=== PATIENT | male | born 2005 | race Caucasian/White ===

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

== ENCOUNTER 2025-05-04 15:14 | Outpatient (AMB) | payer OTHER, SELFPAY ==
--- NOTE | 2025-05-04 15:18 | A.OFFPC_ITS ---
Vital Signs 05/04/25 15:19 Height 5 ft 10 in Weight 110 lb BMI 15.8 BP 114/80 Blood Pressure Location Lt brachial Position Sitting Intake Visit Reasons: Annual physical Intake Note: Patient here for a physical exam Sole Conditioner Required: No Accompanied by: Self / Same As Patient Allergies No Known Allergies Allergy (Verified 05/04/25 15:26) Medication List - Last Reconciled 05/04/25 by Hailey Pete MD pantoprazole 40 mg PO DAILY 90 days Tobacco use date assessed: 12/23/24 Dental Screening Dental Screen Date: 12/23/24 HPI HPI Comments History of Present Illness Details The patient is a 19-year-old male presenting for a physical exam and evaluation of ongoing health concerns. The patient reports experiencing heartburn, which is managed with pantoprazole taken as needed. He notes improvement in symptoms with this medication, although he occasionally forgets to take it, resulting in usage approximately three times a week. The patient is aware of potential long-term side effects of pantoprazole, such as osteoporosis and low magnesium levels, and is advised against daily use. The patient has a history of depression, with a PHQ-9 score of 8, indicating mild depression. He does not currently see a mental health professional and manages his symptoms independently. He also experiences low-level anxiety, which he attributes to stress, and has not sought counseling despite being advised of its availability. The patient experienced chest pain previously, which was evaluated in the hospital. Blood work showed low white blood cell and platelet counts, but other parameters, including cholesterol and thyroid function, were normal. An EKG was performed, showing normal changes, and the chest pain was suspected to be related to anxiety or heartburn. The patient reports right knee discomfort characterized by clicking sounds, which has persisted for approximately eight years. The knee does not cause pain but feels different compared to the other knee. An x-ray is planned to further evaluate this issue. [facility] Surgical History No pertinent past surgical history Family History Mother Asthma GERD (gastroesophageal reflux disease) Father No problems noted. Social History Housing: Apartment Alcohol intake: current Alcohol intake frequency: holidays/special occasions only Alcohol type: beer Patient Tobacco Use Status: Never used Tobacco e-Cigarette/Vaping Use: Never Used Second Hand Smoke Exposure: No service: No Current occupational status: employed Current occupational exposures/hazards: No Cognitive needs: No Hearing needs: No Vision needs: No Questionnaire PHQ-9 Over the last 2 weeks, how often have you been bothered by any of the following problems? 1. Little interest or pleasure in doing things: nearly every day 2. Feeling down, depressed, or hopeless: nearly every day 3. Trouble falling or staying asleep, or sleeping too much: not at all 4. Feeling tired or having little energy: not at all 5. Poor appetite or overeating: several days 6. Feeling bad about yourself - or that you are a failure or have let yourself or your family down: several days 7. Trouble concentrating on things, such as reading the newspaper or watching television: not at all 8. Moving or speaking so slowly that other people could have noticed. Or the opposite - being so fidgety or restless that you have been moving around a lot more than usual: not at all 9. Thoughts that you would be better off or of hurting yourself in some way: not at all Total score: 8 Depression Screening Interpretation: Positive Depression Screening Follow-up: Existing condition and Follow-up Visit Requested Depression Screening Done: Yes 71903 - PHQ-9 Billing: Yes Source: Developed by Drs. Jose M Taylor, Oanh Sky, David Lyn and colleagues, with an educational layla from [employer]. Thrive Questionnaire Date Thrive assessed: 12/21/24 I am a: Patient What is your living situation today?: I have a steady place to live Within the past 12 months, did the food you bought not last and you didn't have the money to get more?: Never true Within the past 12 months, did you worry whether your food would run out before you got money to buy more?: Never true Do you have trouble paying for medicines?: No Do you have trouble getting transportation to medical appointments?: No Do you have trouble paying your heating and electricity bill?: I choose not to answer this question Do you have trouble taking care of your child, family member or friend?: I choose not to answer this question Do you have trouble with day-to-day activities such as bathing, preparing meals, shopping, managing finances, etc.?: No Are you currently unemployed and looking for a job?: No Are you interested in more education?: I choose not to answer this question Please select the resources that you would like help with: None Currently or been in a relationship where the following occur: No concerns reported THRIVE Score: 0 MAUREEN-7 AMB Questionnaire MAUREEN-7 Date MAUREEN - 7 assessed: 12/23/24 Source: Developed by Drs. Jose M Taylor, Oanh Sky, David Lyn and colleagues, with an educational layla from [employer]. Review of Systems Const All systems reviewed & are unremarkable except as noted in HPI and below Card Denies chest pain at rest, Denies chest pain with activity, Denies edema, Denies irregular heart rhythm, Denies claudication, Denies dyspnea, Denies dyspnea on exertion, Denies orthopnea, Denies paroxysmal nocturnal dyspnea and Denies slow heart rate Resp Denies cough, Denies dyspnea and Denies dyspnea on exertion GI Denies abdominal pain, Denies change in bowel habits, Denies excessive flatus, Denies nausea and Denies vomiting Denies urinary hesitancy, Denies urinary incontinence and Denies urinary urgency Musc Denies atrophy, Denies deformity and Denies limited range of motion Physical exam (Primary Care) Vital Signs: Last Vital Signs BP 114/80 05/04/25 15:19 BMI result Body Mass Index 15.8 Tobacco/Smoking Status: Tobacco use Status Tobacco use date assessed 12/23/24 05/04/25 15:21 Patient Tobacco Use Status Never used Tobacco 05/04/25 15:21 e-Cigarette/Vaping Use Never Used 05/04/25 15:21 Depression Screening Interpretation: Positive Depression Screening Follow-up: Existing condition and Follow-up Visit Requested Thrive Assessment: Date of Thrive Assessment Date Thrive assessed 12/21/24 05/04/25 15:21 Currently or been in a relationship where the following occur: No concerns reported HENMT Head: Yes normal to inspection, Yes normocephalic and Yes atraumatic Ears: external ears normal Eyes General: appearance normal, both eyes and all related structures Eyelids: Yes eyelids normal Conjunctivae: conjunctivae normal Neck Neck: Yes normal visual inspection and Yes supple Resp Effort & Inspection: normal respiratory effort Auscultation: clear to auscultation bilaterally Cardio Jugular venous distension: no JVD Rate: regular rate Rhythm: regular rhythm Heart sounds: S1 normal heart sound present and S2 normal heart sound present GI Inspection: Yes normal to inspection Palpation (GI): Soft to palpation and nontender Auscultation: normal bowel sounds Skin General skin exam: no rashes or lesions noted Neuro General: no focal motor deficits Extrem General: Yes full ROM Psych Appearance: grossly normal Coding Level of Care Code Est Pt Level 3 (35786) Est Pt Prev Care 18-39y(02607) Diagnoses Physical exam Z00.00 Mild recurrent major depression F33.0 Thrombocytopenia D69.[address] M25.361 Additional Codes PHQ-9 - 72957 - PHQ-9 Billing: Yes ([id number]) Time Spent (min) 33 Assessment & Plan Assessment & Plan (1) Physical exam: Code(s): Z00.00 - Encounter for general adult medical examination without abnormal findings Category: Medical (2) Mild recurrent major depression: Code(s): F33.0 - Major depressive disorder, recurrent, mild Category: Medical (3) Thrombocytopenia: Code(s): D69.6 - Thrombocytopenia, unspecified Category: Medical (4) Right knee gives way: Code(s): M25.361 - Other instability, right knee Category: Medical Plan The patient will continue to manage heartburn with pantoprazole as needed, ensuring not to exceed three times a week to avoid potential side effects such as osteoporosis and low magnesium levels. For the depression and anxiety, the patient is encouraged to seek counseling if symptoms become unmanageable, although he currently manages them independently. The patient will undergo repeat blood work to monitor white blood cell and platelet counts, as previous results indicated low levels. An x-ray of the right knee will be performed to investigate the persistent clicking sound. Patient was informed and verbally consented to the use of an ambient scribe for clinic note documentation during this visit. Orders: Orders Complete Blood Count Auto Diff Today D69.6 - Thrombocytopenia, unspecified XR knee RT 2V Today M25.361 - Other instability, right knee
[2025-05-04 15:19] VITALS: BP 114/80; BMI 15.8
--- OUTSIDE RECORDS SUMMARY | 2025-05-04 15:57 | XMS_ITS | Clinical Summary ---
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 Name Role Phone Unavailable Primary Care Provider [...] Male 3-dos e series) 2020 Meningococcal B Vaccine (1 o f 2 - Standard) 2021 COVID-19 Vaccine (1 - 2023-2 5 season) 2024 DTaP,Tdap,and Td Vaccines (1 - Tdap) 2024 Hepatitis B Vaccines (1 of 3 - 19+ 3-dose series) 2024 Annual Well Child Visit (3-2 1 years old) 08/31/2024 HIV Screening 08/31/2024 Hepatitis C Screening 08/31/2024 Social Influencers of Health Screening 08/31/2024 Depression Screening 10/06/2024 Influenza Vaccine (#1) 2025 HIB Vaccines Aged Out No longer eligi [...] 5 Years) and At-Risk Patients (6 to 49 Years) Aged Out No longer eligible b ased on patient's age to complete this topic RSV Immunization Patients Un ezra 20 months Aged Out No longer eligible b ased on patient's age to complete this topic
== END 2025-05-04 15:40 | disposition home or self-care (01) ==
LOC: HO.HMCH 15:15
PROVIDERS: Visit Provider Internal Medicine
DX: Z00.00 Encounter for general adult medical examination without abnormal findings (principal); F33.0 Major depressive disorder, recurrent, mild; D69.6 Thrombocytopenia, unspecified; M25.361 Other instability, right knee

== ENCOUNTER 2025-05-04 15:14 | Outpatient (REF) | payer OTHER, SELFPAY ==
--- NOTE | ~2025-05-04 | XR_ITS ---
EXAMINATION: XR KNEE, RIGHT CLINICAL INFORMATION: M25.361 - Other instability, right knee COMPARISON: None available. TECHNIQUE: AP and lateral views of the right knee. FINDINGS: There is no joint space narrowing. There is no joint effusion. There are no osteophytes. There is normal bone mineral density. XR/XR knee RT 2V IMPRESSION: Unremarkable right knee. Electronically signed by: Zach Grimm MD 05/04/2025 04:31 PM EDT
[2025-05-04 15:53] LABS: MANUAL DIFF FLAG NO
[2025-05-04 17:02] LABS: Hematocrit 43.9 % (42.0-52.0); Hemoglobin 14.7 g/dl (14.0-18.0); Imm Gran Abs Auto 0.01 X10*3/uL (0.00-0.03); Imm Gran Pct Auto 0.2 % (0.0-0.4); Lymphocytes Absolute Auto 1.4 X10*3/uL (1.2-4.9); Mean Corpuscular HGB Conc 33.5 g/dl (31.0-36.0); Mean Corpuscular Hemoglobin 29.5 pg (27.0-33.0); Mean Corpuscular Volume 88.0 fL (80.0-98.0); NRBC Abs Auto 0.000 X10*3/uL (0.0-0.012); NRBC Pct Auto 0.0 /100WBC (0.0-0.2); Platelet Count 157 X10*3/uL (160-400); Red Blood Count 4.99 X10*6/uL (4.60-5.80); White Blood Count 6.4 X10*3/uL (4.8-10.8)
== END 2025-05-04 15:15 | disposition home or self-care (01) ==
LOC: HO.LAB 15:14
PROVIDERS: PCP Internal Medicine; Visit Provider Internal Medicine
DX: Z00.01 Encounter for general adult medical examination with abnormal findings (principal); F33.0 Major depressive disorder, recurrent, mild; D69.6 Thrombocytopenia, unspecified; M25.361 Other instability, right knee; M25.561 Pain in right knee
CPT/HCPCS: 36415; 73560; 85025; 96127; 99212; 99395

== ENCOUNTER → 2025-05-04 15:59 | Outpatient (BNV) | payer OTHER, SELFPAY | PROVIDERS: PCP Internal Medicine; Visit Provider Radiology Diagnostic Radiology | DX: M25.361 Other instability, right knee (principal) | CPT/HCPCS: 73560 ==

== ENCOUNTER 2025-05-31 10:51 | Outpatient (AMB) | payer OTHER, SELFPAY ==
[2025-05-31 11:00] VITALS: BP 117/66; PULSE 65; BMI 17.4
--- NOTE | 2025-05-31 11:00 | A.OFFVIS_ITS ---
Vital Signs 05/31/25 11:00 Height 5 ft 10 in Weight 121 lb 4.068 oz BMI 17.4 BP 117/66 Blood Pressure Location Lt brachial Position Sitting Pulse 65 Intake Visit Reasons: Gastroesophageal reflux disease (GERD) Intake Note: Corona presents in the office as a new patient for GERD. CC: States that he eats a lot and this is the most he has ever weighed. States that he does not have irregular BMs but he has bad GERD. Belching a lot an states that when he eats a lot he will get a feeling like the food is going to come up. He states he does not have issues with nausea or vomiting just more so the reflux. Business Insurance Agent Required: No Allergies No Known Allergies Allergy (Verified 05/31/25 11:02) HPI HPI Gastroesophageal reflux disease (GERD): Details: 19-year-old male here for initial evaluation of GERD. He is referred by Hailey Deleon. PMX Depression with anxiety GERD * SURGICAL HISTORY * ALLERGIES: NKDA * [facility] LABS: Laboratory Tests 12/28/24 05/04/25 09:03 15:51 WBC 6.4 Hgb 14.7 Hct 43.9 Plt Count 157 L Estimated GFR > 60 Total Bilirubin 0.6 AST 26 ALT 24 Alkaline Phosphatase 86 TSH 0.54 TODAY'S VISIT [facility] Surgical History No pertinent past surgical history Family History Mother Asthma GERD (gastroesophageal reflux disease) Father No problems noted. Social History Housing: Apartment Alcohol intake: current Alcohol intake frequency: holidays/special occasions only Alcohol type: beer Patient Tobacco Use Status: Never used Tobacco e-Cigarette/Vaping Use: Never Used Second Hand Smoke Exposure: No service: No Current occupational status: employed Current occupational exposures/hazards: No Cognitive needs: No Hearing needs: No Vision needs: No Review of Systems Const Denies fatigue, Denies fever(s), Denies night sweats, Denies poor appetite, Reports weight gain (About 5 lb) and Denies weight loss ENT Reports Normal hearing present, Denies dental pain, Denies dysphagia, Denies hearing loss, Denies mouth pain, Denies odynophagia, Denies throat swelling, Denies tongue swelling and Reports other (Dentition adequate) Card Reports no additional complaints Resp Reports no additional complaints GI Details: Denies abdominal pain, Denies melena, Denies bloating, Denies hematochezia, Denies constipation, Denies GI cramping, Denies dysphagia, Denies excessive flatus, Denies early satiety, Reports dyspepsia, Reports heartburn, Denies diarrhea, Denies nausea, Denies odynophagia, Denies vomiting and Denies hematemesis Reports urinary frequency Skin/Breast Denies pruritus, Denies lesions, Denies rash and Denies jaundice Neuro Reports Normal hearing present and Denies Abnormal speech present Endo Denies fatigue Aller/Immun Denies throat swelling and Denies tongue swelling Physical Exam Vital Signs: Last Vital Signs Pulse 65 05/31/25 11:00 BP 117/66 05/31/25 11:00 BMI result Body Mass Index 17.4 Const General: cooperative, no acute distress, well developed and well groomed Nutritional Appearance: well nourished and thin Orientation/consciousness: oriented to person, oriented to place and oriented to time Limitations: No language barrier HEENT Head: Yes normocephalic and Yes atraumatic Eyes General: appearance normal, both eyes and all related structures Pupils: Equal, round and reactive pupils present Neck Neck: Yes normal visual inspection and Yes no lymphadenopathy Thyroid: Thyroid normal Resp Effort & Inspection: normal respiratory effort and able to speak in complete sentences Auscultation: clear to auscultation bilaterally Cardio Rate: regular rate Rhythm: regular rhythm Heart sounds: Normal, physiologic split S2 sound present Peripheral pulses: radial pulses present and posterior tibial pulses present GI Inspection: No distended and No Abdominal panniculus present Palpation (GI): Soft to palpation, nontender, no guarding, not rigid and No hepatosplenomegaly present Percussion: Yes normal to percussion Auscultation: normal bowel sounds Rectal Exam - Male: Yes deferred Skin General skin exam: no rashes or lesions noted, turgor normal, skin not dry, no jaundice, No spider nevi and no striae Rashes: no rashes Nails: normal Neuro General: oriented to person, oriented to place and oriented to time Cranial nerves: Yes Equal, round and reactive pupils present and Yes Normal hearing present Speech: No Abnormal speech present Extrem General: Yes normal to inspection, No clubbing, No cyanosis and No edema Psych Appearance: grossly normal and well kempt Mental Status: mental status grossly normal Speech and movement: Normal speech and movement present Affect: normal affect Attitude: cooperative Thought process: Normal thought process present and not confabulating Thought content: Normal thought content present Insight: Fair insight present (Psych) Judgement: Fair judgement present (Psych) Assessment & Plan Assessment & Plan (1) Chronic GERD: Code(s): K21.9 - Gastro-esophageal reflux disease without esophagitis Category: Medical (2) Polyuria: Code(s): R35.89 - Other polyuria Category: Medical (3) Hyperglycemia: Code(s): R73.9 - Hyperglycemia, unspecified Category: Medical Plan - The patient is a 19-year-old male presenting with heartburn. - Reports onset of heartburn symptoms 8 to 10 months ago, with a progression to more frequent and bothersome episodes. - Experiences significant burping after meals, a feeling of acid reflux, and infrequent regurgitation when burping incorrectly. He has not received any significant literature on GERD diet and lifestyle changes. - Denies dysphagia, but describes food sometimes feeling like it does not go luzma n all the way. - Symptom relief was noted with pantoprazole, although used sporadically; I suggested this is not the most effective medication to use p.r.n. due to pharmacological onset time. - An earlier history of constipation is described, which was managed by increased dietary fiber and fluid intake. - The patient acknowledges increased urinary frequency during extended work shifts, correlating with high fluid intake. 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 - Initially experienced erratic meal patterns due to work, leading to missed me als. - Engages in regular physical activity through work, resulting in improved strength. - Diet includes home-cooked meals with increased water consumption and reduced ingestion of processed foods. - Mother: Esophageal issues characterized by heartburn. - Paternal grandmother: Diabetes mellitus. We will transition him to famotidine instead of pantoprazole so that he can get more effective PRN relief since this has a faster onset of action. We will also get a barium swallow to evaluate esophageal motility and if there is any severe herniation of the esophagus, and an ultrasound to see if there are any gallbladder issues along with an H pylori stool sample. We have also discussed the potential EGD depending on the outcome of these procedures, but I think we should order it now since there is quite a long lead time to get this procedure done. He is naive to anesthesia and sedation. He denies any cardiac or respiratory problems. There are no infectious disease problems. He is not aware of any family history of esophageal, stomach or colon cancer. Return office visit in 8 weeks and will go over whatever tests we have available at that time Orders: Orders UA CC w/rflx Micro + Cult Today R35.89 - Other polyuria, R73.9 - Hyperglycemia, unspecified FL barium swallow Today K21.9 - Gastro-esophageal reflux disease without esophagitis EGD - GI Use Only Today K21.9 - Gastro-esophageal reflux disease without esoph agitis US abdomen complete Today K21.9 - Gastro-esophageal reflux disease without esophagitis H pylori Ag Stool Today K21.9 - Gastro-esophageal reflux disease without esophagitis Hemoglobin A1c Today R35.89 - Other polyuria, R73.9 - Hyperglycemia, unspecified Medications: New famotidine (Pepcid) 40 mg PO DAILY PRN 30 tabs 6RF heartburn K21.9 - Gastro- esophageal reflux disease without esophagitis On Hold pantoprazole Hold Comment: Doctor's Order 40 mg PO DAILY 90 days 90 tabs 1RF K21.9 - Gastro-esophageal reflux disease without esophagitis Coding Level of Care Code New Pt Level 3 (63102) Diagnoses Chronic GERD K21.9 Polyuria R35.89 Hyperglycemia R73.9
--- OUTSIDE RECORDS SUMMARY | 2025-05-31 11:43 | XMS_ITS | Clinical Summary ---
Author Organization [facility] Address [address] [place] [address] Care Team Providers Care Senior Professional Services Consultant Name Role Phone Unavailable Primary Care Provider [...]
== END 2025-05-31 11:48 | disposition home or self-care (01) ==
LOC: HO.HGI 10:52
PROVIDERS: PCP Internal Medicine; Visit Provider Nurse Practitioner
DX: K21.9 Gastro-esophageal reflux disease without esophagitis (principal); R35.89 Other polyuria; R73.9 Hyperglycemia, unspecified
CPT/HCPCS: 99203

== ENCOUNTER → 2025-05-31 10:51 | Outpatient (BNVA) | payer OTHER, SELFPAY | PROVIDERS: PCP Internal Medicine; Visit Provider Nurse Practitioner | DX: K21.9 Gastro-esophageal reflux disease without esophagitis (principal); R35.89 Other polyuria; R73.9 Hyperglycemia, unspecified | CPT/HCPCS: 99202 ==

== ENCOUNTER 2025-06-13 14:29 | Outpatient (AMB) | payer OTHER, SELFPAY ==
--- NOTE | 2025-06-13 14:32 | A.OFFVIS_ITS ---
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 Instructions: Doctor's Order HPI Comments Details: Corona was referred here as few months ago he had EKGs which showed sinus bradycardia and early repolarization syndrome as much as he can understand. He has never had any symptoms of lightheadedness or syncope. 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 He denies any symptoms with that. He has never had any exertional chest pain or shortness of breath. He comes in today and his EKGs shows normal sinus rhythm with rightward axis and right atrial enlargement. This could be due to his body habitus. Patient denies any prior as a child murmur. No childhood heart history. No family history of premature coronary artery disease or sudden cardiac that. [facility] Surgical History No pertinent past surgical history Family History Mother Asthma GERD (gastroesophageal reflux disease) Father No problems noted. Social History Housing: Apartment Alcohol intake: current Alcohol intake frequency: holidays/special occasions only Alcohol type: beer Patient Tobacco Use Status: Never used Tobacco e-Cigarette/Vaping Use: Never Used Second Hand Smoke Exposure: No service: No Current occupational status: employed Current occupational exposures/hazards: No Cognitive needs: No Hearing needs: No Vision needs: No Review of Systems Const Denies chills, Denies daytime sleepiness, Denies fatigue, Denies fever(s), Denies frequent falls, Denies poor appetite, Denies snoring, Denies stops breathing during sleep, Denies weakness, Denies weight gain and Denies weight loss Eyes Denies loss of vision ENT Denies dizziness and Denies hearing loss Card Denies chest pain, Denies claudication, Denies leg edema, Denies lightheadedness, Denies palpitations, Denies dyspnea, Denies dyspnea on exertion and Denies orthopnea Resp Denies cough, Denies excessive phlegm production, Denies dyspnea, Denies dyspnea on exertion, Denies snoring and Denies wheezing GI Denies abdominal pain, Denies hematochezia, Denies change in bowel habits, Denies nausea and Denies vomiting Denies dysuria and Denies urinary frequency Musc Denies arthralgias, Denies muscle weakness and Denies numbness Skin/Breast Denies nail changes and Denies rash Neuro Denies Abnormal speech present, Denies dizziness, Denies frequent falls, Denies loss of vision, Denies memory loss, Denies numbness and Denies weakness Psych Denies depression and Denies memory loss Endo Denies fatigue and Denies palpitations Ramiro/Lymph Reports easy bruising and Reports other (anemia) Aller/Immun Denies wheezing Physical Exam Vital Signs: Last Vital Signs BP 120/72 06/13/25 14:33 BMI result Body Mass Index 17.4 Const General: cooperative, comfortable, no acute distress, alert and awake Nutritional Appearance: thin and underweight Orientation/consciousness: patient oriented x3 Limitations: no limitations HEENT Head: Yes normocephalic and Yes atraumatic Neck Neck: Yes trachea midline, Yes supple and Yes no JVD Resp Effort & Inspection: normal respiratory effort Auscultation: clear to auscultation bilaterally Cardio Jugular venous distension: no JVD Rate: regular rate Rhythm: regular rhythm Heart sounds: S1 normal heart sound present, S2 normal heart sound present, no click, no gallops, no murmurs and no rubs GI Auscultation: normal bowel sounds Skin General skin exam: no rashes or lesions noted Neuro General: patient oriented x3 and no focal motor deficits Speech: No Abnormal speech present Extrem General: Yes no clubbing, cyanosis or edema Psych Appearance: grossly normal Office Procedures EKG Details: EKG shows normal sinus rhythm with right atrial enlargement with rightward axis [id number], Complete Assessment & Plan Assessment & Plan (1) Sinus bradycardia: Code(s): R00.1 - Bradycardia, unspecified Category: Medical Plan: Sinus bradycardia which is considered normal at a young age with no symptoms. This most likely is physiologic. At today's heart rate within normal limits. No intervention required although today's EKGs suggestive of rightward axis right atrial enlargement. Will suggest an echocardiogram to assess for any structural abnormalities such as intracardiac shunting. Most likely EKGs related to his body habitus. Encouraged to maintain activity level as tolerated and participate in more weight gain. He showed understanding. Will follow up in the clinic if need be. Thank you for allowing me to partake in his care Coding Level of Care Code New Pt Level 3 (89530) Diagnoses Sinus bradycardia R00.1 CPT Codes EKG - CPT: 64281-[id number], Complete ([id number])
[2025-06-13 14:33] VITALS: BP 120/72; BMI 17.4
--- OUTSIDE RECORDS SUMMARY | 2025-06-13 16:50 | XMS_ITS | Clinical Summary ---
Author Organization [facility] Address [address] [place] [address] Care Team Providers Care Air Table Operator Name Role Phone Unavailable Primary Care Provider [...] (1 o f 2 - Standard) 2021 DTaP,Tdap,and Td Vaccines (1 - Tdap) 2024 Hepatitis B Vaccines (1 of 3 - 19+ 3-dose series) 2024 Annual Well Child Visit (3-2 1 years old) 08/31/2024 HIV Screening 08/31/2024 Hepatitis C Screening 08/31/2024 Social Influencers of Health Screening 08/31/2024 Depression Screening 10/06/2024 COVID-19 Vaccine (1 - 2023-2 5 season) 2025 Influenza Vaccine (#1) 2025 HIB Vaccines Aged [...]
== END 2025-06-13 15:24 | disposition home or self-care (01) ==
LOC: HO.HCS 14:29
PROVIDERS: PCP Internal Medicine; Visit Provider Internal Medicine Cardiovascular Disease
DX: R00.1 Bradycardia, unspecified (principal)
CPT/HCPCS: 93010; 99213

== ENCOUNTER → 2025-06-13 14:29 | Outpatient (BNVA) | payer OTHER, SELFPAY | PROVIDERS: PCP Internal Medicine; Visit Provider Internal Medicine Cardiovascular Disease | DX: R00.1 Bradycardia, unspecified (principal) | CPT/HCPCS: 93005; 99212 ==

== ENCOUNTER → 2025-07-08 13:07 | Outpatient (REF) | payer OTHER, SELFPAY ==
--- NOTE | 2025-07-08 13:09 | CA_ITS ---
Transthoracic Echocardiogram Patient (Last, First, Middle): Corona Hughes, Gender: Male Date of : 2005 Age: 19 Procedure Date: 07/08/2025 Procedure Type: Transthoracic Echocardiogram Location: OP Height: 177.8 cm Weight: 52.62 kg BSA: 1.66 m2 Heart Rate: bpm BP: 122 / 70 mmHg Launch Leader: TO Referring MD: Landen Vasquez MD Symptoms: R00.1 - Bradycardia, unspecified Study Quality: Adequate ECG Rhythm: Sinus Conclusions: - The left ventricular systolic function is normal. The calculated ejection fraction is 62% by biplane method. - No obvious valvular pathology seen on this study. Findings Left Ventricle Normal left ventricular cavity size. There is normal left ventricular wall thickness. The left ventricular systolic function is normal. The calculated ejection fraction is 62% by biplane method. There is no evidence of regional wall motion abnormalities. Diastolic function is normal for age. Right Ventricle Normal right ventricular cavity size and systolic function. Atria Both atria are normal in size. Aortic Valve There is a normal trileaflet aortic valve. There is no aortic valve stenosis. There is no aortic valve regurgitation. Mitral Valve The mitral valve appears normal. There is trace mitral valve regurgitation. There is no mitral valve stenosis. Pulmonic Valve The pulmonic valve is likely normal. Tricuspid Valve There is trace tricuspid valve regurgitation. There is no evidence of pulmonary hypertension. Great Vessels The aorta was not well visualized. The sinuses of valsalva is normal in size. Venous The inferior vena cava is normal in size and collapses greater than 50% with inspiration. Pericardium/Pleural There is no evidence of pericardial effusion. Prior Study Comparison No prior study available for comparison. Recommendations, Care & Conclusions No obvious valvular pathology seen on this study. Measurements 2D Linear Measurements IVSd: 0.78 0.6-0.9/0.6-1.0 cm LVIDd: 4.48 3.9-5.3/4.2-5.9 cm LVIDd Index: 2.70 2.4-3.2/2.2-3.1 cm/m2 LVIDs: 3.05 2.0-3.6 cm LVPWd: 0.80 0.7-1.1 cm LA Diam: 2.90 2.7-3.8/3.0-4.0 cm LAIDs Index: 1.75 1.5-2.3 cm/m2 LV Mass: 137.36 67-162/88-224 g LV Mass Index: 82.75 43-95/49-115 g/m2 LVOT Diam: 2.40 3.0+(-)1.3 cm 2D Systolic Function EF 4C: 61.80 >55% EF 2C: 61.90 >55% EF BiP: 61.70 >55% Mitral Valve MV Pk E: 0.71 MV PK A: 0.56 MV Decel Time: 146.00 E/A: 1.30 E'Lateral: 13.50 E'Medial: 10.60 E/E' Med: 6.70 E/E' Lat: 5.30 PHT: 43.00 MVA PHT: 5.12 Decel [place]: 4.87 Aortic Valve AoV Pk Desmond: 1.20 AoV Mn Desmond: 0.77 AoV VTI: 0.22 AoV Pk Grad: 6.00 Aov Mn Grad: 3.00 STERLING Cont.VTI: 4.20 LVOT LVOT Pk Desmond: 1.14 LVOT Mn Desmond: 0.75 LVOT VTI: 0.20 LVOT Pk Grad: 5.00 LVOT Mn Grad: 3.00 LVOT Diam: 2.40 LVOT Area: 4.52 Diastolic Function MV Pk E: 0.71 MV Pk A: 0.56 E/A: 1.30 E'Medial: 10.60 E/E' Med: 6.70 E' Laterial: 13.50 E/E' Lat: 5.30 Right Ventricle TAPSE (mm): 25.00 TVS' Desmond: 11.70 Tricuspid Valve TR Pk Desmond: 2.28 TR Pk Grad: 21.00 RA Press: 3.00 RVSP: 24.00 Great Vessels Aorta Sinus of Valsalva: 2.91 2.0-3.5 cm Updated in Other Vendor System with Status of Final Joni Nguyen MD electronically signed on 07/09/2025 4:45:08 PM with status of Final
--- OUTSIDE RECORDS SUMMARY | 2025-07-08 13:30 | XMS_ITS | Clinical Summary ---
Author Organization [facility] Address [address] [place] [address] Care Team Providers Care Manager Of Organizational Development Name Role Phone Unavailable Primary Care Provider [...] 5 season) 2025 Influenza Vaccine (#1) 2025 RSV Immunization Adult Patie nts (1 - 1-dose 75+ series) 2080 HIB Vaccines Aged Out No longer eligi [...]
== END ==
LOC: HO.CARD 13:07
PROVIDERS: PCP Internal Medicine; Visit Provider Internal Medicine Cardiovascular Disease
DX: R00.1 Bradycardia, unspecified (principal)
CPT/HCPCS: 93306

== ENCOUNTER → 2025-07-08 13:09 | Outpatient (BNV) | payer OTHER, SELFPAY | PROVIDERS: PCP Internal Medicine; Visit Provider Internal Medicine | DX: R01.1 Cardiac murmur, unspecified (principal) | CPT/HCPCS: 93306 ==

== ENCOUNTER 2025-07-29 08:25 | Outpatient (REF) | payer OTHER, SELFPAY ==
--- NOTE | ~2025-07-29 | US_ITS ---
EXAMINATION: US ABDOMEN COMPLETE CLINICAL INFORMATION: Gas esophageal reflux without esophagitis.. COMPARISON: None available. TECHNIQUE: Real-time ultrasound of the abdomen using grayscale technique with a curvilinear transducer. FINDINGS: PANCREAS: No peripancreatic fluid collections. No main pancreatic ductal dilatation. ABDOMINAL AORTA: The proximal, mid, and distal segments are normal in caliber. INFERIOR VENA CAVA: Visualized portions are normal. LIVER: 15 cm. Normal echotexture. No nodular surface. No solid or cystic lesion. No intrahepatic biliary ductal dilatation. GALLBLADDER: Fluid-filled nondistended. No pericholecystic fluid collection or gallbladder wall thickening. COMMON BILE DUCT: 3 mm.. RIGHT KIDNEY: 11 cm. Normal echotexture. Normal renal cortical thickness. No hydronephrosis. No solid or cystic lesion. LEFT KIDNEY: 10 cm. Normal echotexture. Normal renal cortical thickness. No hydronephrosis. No solid or cystic lesion. Questionable punctate hyperechoic structures at the corticomedullary junction.. SPLEEN: 10 cm. No solid or cystic lesion. FREE FLUID: None. US/US abdomen complete IMPRESSION: No cholelithiasis or choledocholithiasis. Liver and spleen are normal. No hydronephrosis. Questionable nonobstructing nephrolithiasis versus artifact, left kidney. No ascites. Electronically signed by: Chi Reaves MD 07/29/2025 09:51 AM EDT
--- OUTSIDE RECORDS SUMMARY | 2025-07-29 08:49 | XMS_ITS | Clinical Summary ---
Author Organization [facility] Address [address] [place] [address] Care Team Providers Care Senior Network Engineer Name Role Phone Unavailable Primary Care Provider [...]
== END 2025-07-29 08:26 | disposition home or self-care (01) ==
LOC: HO.US 08:25
PROVIDERS: PCP Internal Medicine; Visit Provider Nurse Practitioner
DX: K21.9 Gastro-esophageal reflux disease without esophagitis (principal)
CPT/HCPCS: 76700

== ENCOUNTER → 2025-07-29 08:30 | Outpatient (BNV) | payer OTHER, SELFPAY | PROVIDERS: PCP Internal Medicine; Visit Provider Radiology Diagnostic Radiology | DX: K21.9 Gastro-esophageal reflux disease without esophagitis (principal); N20.0 Calculus of kidney | CPT/HCPCS: 76700 ==

== ENCOUNTER 2025-08-02 08:07 | Outpatient (REF) | payer OTHER, SELFPAY ==
[2025-08-02 08:24] LABS: MANUAL DIFF FLAG NO
--- OUTSIDE RECORDS SUMMARY | 2025-08-02 08:25 | XMS_ITS | Clinical Summary ---
Author Organization [facility] Address [address] [place] [address] Care Team Providers Care Youtuber Name Role Phone Unavailable Primary Care Provider [...] complete this topic RSV Immunization Patients Un erza 20 months Aged Out No longer eligible b ased on patient's age to complete this topic
[2025-08-02 08:30] LABS: Hematocrit 47.0 % (42.0-52.0); Hemoglobin 15.6 g/dl (14.0-18.0); Imm Gran Abs Auto 0.01 X10*3/uL (0.00-0.03); Imm Gran Pct Auto 0.2 % (0.0-0.4); Lymphocytes Absolute Auto 1.2 X10*3/uL (1.2-4.9); Mean Corpuscular HGB Conc 33.2 g/dl (31.0-36.0); Mean Corpuscular Hemoglobin 29.7 pg (27.0-33.0); Mean Corpuscular Volume 89.5 fL (80.0-98.0); NRBC Abs Auto 0.000 X10*3/uL (0.0-0.012); NRBC Pct Auto 0.0 /100WBC (0.0-0.2); Platelet Count 142 X10*3/uL (160-400); Red Blood Count 5.25 X10*6/uL (4.60-5.80); White Blood Count 4.6 X10*3/uL (4.8-10.8)
[2025-08-02 08:39] LABS: Hemoglobin A1C 129.0720 umol/L
[2025-08-02 08:52] LABS: Appearance Urine Clear; Glucose Urine UA Negative (Negative); PH 7.5 (5.0-9.0); Specific Gravity - Urine 1.020 (1.005-1.025)
== END 2025-08-02 08:08 | disposition home or self-care (01) ==
LOC: HO.LAB 08:07
PROVIDERS: Absent Provider Internal Medicine; PCP Internal Medicine; Visit Provider Nurse Practitioner
DX: K21.9 Gastro-esophageal reflux disease without esophagitis (principal); D72.819 Decreased white blood cell count, unspecified; R35.89 Other polyuria; R73.9 Hyperglycemia, unspecified
CPT/HCPCS: 36415; 81003; 83036; 85025; 87338; 99212

== ENCOUNTER 2025-08-02 10:04 | Outpatient (AMB) | payer OTHER, SELFPAY ==
--- NOTE | 2025-08-02 10:26 | MHC.OFFVISWM ---
Intake Visit Reasons: 8 week FUV. Allergies No Known Allergies Allergy (Verified 05/31/25 11:02) HPI HPI 8 week FUV.: Details: Assessment & Plan (1) Chronic GERD: Code(s): K21.9 - Gastro-esophageal reflux disease without esophagitis Category: Medical (2) Polyuria: Code(s): R35.89 - Other polyuria Category: Medical (3) Hyperglycemia: Code(s): R73.9 - Hyperglycemia, unspecified Category: Medical Plan - The patient is a 19-year-old male presenting with heartburn. - Reports onset of heartburn symptoms 8 to 10 months ago, with a progression to more frequent and bothersome episodes. - Experiences significant burping after meals, a feeling of acid reflux, and infrequent regurgitation when burping incorrectly. He has not received any significant literature on GERD diet and lifestyle changes. - Denies dysphagia, but describes food sometimes feeling like it does not go down all the way. - Symptom relief was noted with pantoprazole, although used sporadically; I suggested this is not the most effective medication to use p.r.n. due to pharmacological onset time. - An earlier history of constipation is described, which was managed by increased dietary fiber and fluid intake. - The patient acknowledges increased urinary frequency during extended work shifts, correlating with high fluid intake. 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 - Initially experienced erratic meal patterns due to work, leading to missed meals. - Engages in regular physical activity through work, resulting in improved strength. - Diet includes home-cooked meals with increased water consumption and reduced ingestion of processed foods. - Mother: Esophageal issues characterized by heartburn. - Paternal grandmother: Diabetes mellitus. We will transition him to famotidine instead of pantoprazole so that he can get more effective PRN relief since this has a faster onset of action. We will also get a barium swallow to evaluate esophageal motility and if there is any severe herniation of the esophagus, and an ultrasound to see if there are any gallbladder issues along with an H pylori stool sample. We have also discussed the potential EGD depending on the outcome of these procedures, but I think we should order it now since there is quite a long lead time to get this procedure done. He is naive to anesthesia and sedation. He denies any cardiac or respiratory problems. There are no infectious disease problems. He is not aware of any family history of esophageal, stomach or colon cancer. Return office visit in 8 weeks and will go over whatever tests we have available at that time Orders: Orders UA CC w/rflx Micro + Cult Today R35.89 - Other polyuria, R73.9 - Hyperglycemia, unspecified FL barium swallow Today K21.9 - Gastro-esophageal reflux disease without esophagitis EGD - GI Use Only Today K21.9 - Gastro-esophageal reflux disease without esophagitis US abdomen complete Today K21.9 - Gastro-esophageal reflux disease without esophagitis H pylori Ag Stool Today K21.9 - Gastro-esophageal reflux disease without esophagitis Hemoglobin A1c Today R35.89 - Other polyuria, R73.9 - Hyperglycemia, unspecified Medications: New famotidine (Pepcid) 40 mg PO DAILY PRN 30 tabs 6RF heartburn K21.9 - Gastro-esophageal reflux disease without esophagitis On Hold pantoprazole Hold Comment: Doctor's Order 40 mg PO DAILY 90 days 90 tabs 1RF K21.9 - Gastro-esophageal reflux disease without esophagitis LABS: 08/02/25-[address] [facility] DR: Hailey Deleon MD ORDERED: Ua Clean Catch QUERIES: Source: Urine, Clean Catch Test Result Flag Reference Ur Color Yellow Ur Appear Clear PH 7.5 5.0-9.0 Ur Glu Negative Negative mg/dL Urine Blood Negative Negative Spec [place] Ur 1.020 1.005-1.025 Urine Protein Negative Neg-Trace mg/dL Urine Ketones Negative Negative mg/dL Ur Nitrite Negative Negative Ur Papo Esterase Negative Negative Laboratory Tests 08/02/25 08:23 Hemoglobin A1c % 5.2 ULTRASOUND OF THE ABDOMEN 07/29/25 FINDINGS: PANCREAS: No peripancreatic fluid collections. No main pancreatic ductal dilatation. ABDOMINAL AORTA: The proximal, mid, and distal segments are normal in caliber. INFERIOR VENA CAVA: Visualized portions are normal. LIVER: 15 cm. Normal echotexture. No nodular surface. No solid or cystic lesion. No intrahepatic biliary ductal dilatation. GALLBLADDER: Fluid-filled nondistended. No pericholecystic fluid collection or gallbladder wall thickening. COMMON BILE DUCT: 3 mm.. RIGHT KIDNEY: 11 cm. Normal echotexture. Normal renal cortical thickness. No hydronephrosis. No solid or cystic lesion. LEFT KIDNEY: 10 cm. Normal echotexture. Normal renal cortical thickness. No hydronephrosis. No solid or cystic lesion. Questionable punctate hyperechoic structures at the corticomedullary junction.. SPLEEN: 10 cm. No solid or cystic lesion. FREE FLUID: None. US/US abdomen complete IMPRESSION: No cholelithiasis or choledocholithiasis. Liver and spleen are normal. No hydronephrosis. Questionable nonobstructing nephrolithiasis versus artifact, left kidney. No ascites. BARIUM SWALLOW 10/05/2025 EGD BIOPSY TODAY'S VISIT [facility] Surgical History No pertinent past surgical history Family History Mother Asthma GERD (gastroesophageal reflux disease) Father No problems noted. Social History Housing: Apartment Alcohol intake: current Alcohol intake frequency: holidays/special occasions only Alcohol type: beer Patient Tobacco Use Status: Never used Tobacco e-Cigarette/Vaping Use: Never Used Second Hand Smoke Exposure: No service: No Current occupational status: employed Current occupational exposures/hazards: No Cognitive needs: No Hearing needs: No Vision needs: No
[2025-08-02 10:32] VITALS: BP 143/79; PULSE 75; BMI 17.6
--- NOTE | 2025-08-02 10:32 | A.OFFVIS_ITS ---
Vital Signs 08/02/25 10:32 Height 5 ft 10 in Weight 123 lb BMI 17.6 BP 143/79 H Blood Pressure Location Lt brachial Position Sitting Pulse 75 Intake Visit Reasons: 8 week FUV. Intake Note: Corona presents to in office follow up of labs and US. CC: Patient reports that he feels that the medications had been helping a lot and he's been doing pretty good. 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 - Reports onset of heartburn symptoms 8 to 10 months ago, with a progression to more frequent and bothersome episodes. - Experiences significant burping after meals, a feeling of acid reflux, and infrequent regurgitation when burping incorrectly. He has not received any significant literature on GERD diet and lifestyle changes. - Denies dysphagia, but describes food sometimes feeling like it does not go down all the way. - Symptom relief was noted with pantoprazole, although used sporadically; I suggested this is not the most effective medication to use p.r.n. due to pharmacological onset time. - An earlier history of constipation is described, which was managed by increased dietary fiber and fluid intake. - The patient acknowledges increased urinary frequency during extended work shifts, correlating with high fluid intake. 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 - Initially experienced erratic meal patterns due to work, leading to missed meals. - Engages in regular physical activity through work, resulting in improved strength. - Diet includes home-cooked meals with increased water consumption and reduced ingestion of processed foods. - Mother: Esophageal issues characterized by heartburn. - Paternal grandmother: Diabetes mellitus. We will transition him to famotidine instead of pantoprazole so that he can get more effective PRN relief since this has a faster onset of action. We will also get a barium swallow to evaluate esophageal motility and if there is any severe herniation of the esophagus, and an ultrasound to see if there are any gallbladder issues along with an H pylori stool sample. We have also discussed the potential EGD depending on the outcome of these procedures, but I think we should order it now since there is quite a long lead time to get this procedure done. He is naive to anesthesia and sedation. He denies any cardiac or respiratory problems. There are no infectious disease problems. He is not aware of any family history of esophageal, stomach or colon cancer. Return office visit in 8 weeks and will go over whatever tests we have available at that time Orders: Orders UA CC w/rflx Micro + Cult Today R35.89 - Other polyuria, R73.9 - Hyperglycemia, unspecified FL barium swallow Today K21.9 - Gastro-esophageal reflux disease without esophagitis EGD - GI Use Only Today K21.9 - Gastro-esophageal reflux disease without esophagitis US abdomen complete Today K21.9 - Gastro-esophageal reflux disease without esophagitis H pylori Ag Stool Today K21.9 - Gastro-esophageal reflux disease without esophagitis Hemoglobin A1c Today R35.89 - Other polyuria, R73.9 - Hyperglycemia, unspecified Medications: New famotidine (Pepcid) 40 mg PO DAILY PRN 30 tabs 6RF heartburn K21.9 - Gastro- esophageal reflux disease without esophagitis On Hold pantoprazole Hold Comment: Doctor's Order 40 mg PO DAILY 90 days 90 tabs 1RF K21.9 - Gastro-esophageal reflux disease without esophagitis 8 LABS; Laboratory Tests 08/02/25 08:23 Hemoglobin A1c % 5.2 08/02/25-[address]: Hailey Deleon MD ORDERED: Ua Clean Catch QUERIES: Source: Urine, Clean Catch Test Result Flag Reference Ur Color Yellow Ur Appear Clear PH 7.5 5.0-9.0 Ur Glu Negative Negative mg/dL Urine Blood Negative Negative Spec [place] Ur 1.020 1.005-1.025 Urine Protein Negative Neg-Trace mg/dL Urine Ketones Negative Negative mg/dL Ur Nitrite Negative Negative Ur Papo Esterase Negative Negative US ABD 07/29/2025 INDINGS: PANCREAS: No peripancreatic fluid collections. No main pancreatic ductal dilatation. ABDOMINAL AORTA: The proximal, mid, and distal segments are normal in caliber. INFERIOR VENA CAVA: Visualized portions are normal. LIVER: 15 cm. Normal echotexture. No nodular surface. No solid or cystic lesion. No intrahepatic biliary ductal dilatation. GALLBLADDER: Fluid-filled nondistended. No pericholecystic fluid collection or gallbladder wall thickening. COMMON BILE DUCT: 3 mm.. RIGHT KIDNEY: 11 cm. Normal echotexture. Normal renal cortical thickness. No hydronephrosis. No solid or cystic lesion. LEFT KIDNEY: 10 cm. Normal echotexture. Normal renal cortical thickness. No hydronephrosis. No solid or cystic lesion. Questionable punctate hyperechoic structures at the corticomedullary junction.. SPLEEN: 10 cm. No solid or cystic lesion. FREE FLUID: None. US/US abdomen complete IMPRESSION: No cholelithiasis or choledocholithiasis. Liver and spleen are normal. No hydronephrosis. Questionable nonobstructing nephrolithiasis versus artifact, left kidney. No ascites. EGD BIOPSY [facility] Surgical History No pertinent past surgical history Family History Mother Asthma GERD (gastroesophageal reflux disease) Father No problems noted. Social History Housing: Apartment Alcohol intake: current Alcohol intake frequency: holidays/special occasions only Alcohol type: beer Patient Tobacco Use Status: Never used Tobacco e-Cigarette/Vaping Use: Never Used Second Hand Smoke Exposure: No service: No Current occupational status: employed Current occupational exposures/hazards: No Cognitive needs: No Hearing needs: No Vision needs: No Review of Systems Const Denies fatigue, Denies fever(s), Denies night sweats, Denies poor appetite and Denies weight loss ENT Reports Normal hearing present, Denies dental pain, Denies dysphagia, Denies hearing loss, Denies mouth pain, Denies odynophagia, Denies throat swelling, Denies tongue swelling and Reports other (Dentition adequate) Card Reports no additional complaints Resp Reports no additional complaints GI Details: Denies abdominal pain, Denies melena, Denies bloating, Denies hematochezia, Denies constipation, Denies GI cramping, Denies dysphagia, Denies excessive flatus, Denies early satiety, Reports dyspepsia, Reports heartburn, Denies diarrhea, Denies nausea, Denies odynophagia, Denies vomiting and Denies hematemesis Skin/Breast Denies pruritus, Denies lesions, Denies rash and Denies jaundice Neuro Reports Normal hearing present and Denies Abnormal speech present Endo Denies fatigue Aller/Immun Denies throat swelling and Denies tongue swelling Physical Exam Vital Signs: Last Vital Signs Pulse 75 08/02/25 10:32 BP 143/79 H 08/02/25 10:32 BMI result Body Mass Index 17.6 Const General: cooperative, no acute distress, well developed and well groomed Nutritional Appearance: well nourished and thin Orientation/consciousness: oriented to person, oriented to place and oriented to time Limitations: No language barrier HEENT Head: Yes normocephalic and Yes atraumatic Eyes General: appearance normal, both eyes and all related structures Pupils: Equal, round and reactive pupils present Neck Neck: Yes normal visual inspection and Yes no lymphadenopathy Thyroid: Thyroid normal Resp Effort & Inspection: normal respiratory effort and able to speak in complete sentences Auscultation: clear to auscultation bilaterally Cardio Rate: regular rate Rhythm: regular rhythm Heart sounds: Normal, physiologic split S2 sound present Peripheral pulses: radial pulses present and posterior tibial pulses present GI Inspection: No distended and No Abdominal panniculus present Palpation (GI): Soft to palpation, nontender, no guarding, not rigid and No hepatosplenomegaly present Percussion: Yes normal to percussion Auscultation: normal bowel sounds Rectal Exam - Male: Yes deferred Skin General skin exam: no rashes or lesions noted, turgor normal, skin not dry, no jaundice, No spider nevi and no striae Rashes: no rashes Nails: normal Neuro General: oriented to person, oriented to place and oriented to time Cranial nerves: Yes Equal, round and reactive pupils present and Yes Normal hearing present Speech: No Abnormal speech present Extrem General: Yes normal to inspection, No clubbing, No cyanosis and No edema Psych Appearance: grossly normal and well kempt Mental Status: mental status grossly normal Speech and movement: Normal speech and movement present Affect: normal affect Attitude: cooperative Thought process: Normal thought process present and not confabulating Thought content: Normal thought content present Insight: Good insight present (Psych) Judgement: Good judgement present (Psych) Results Reviewed Results Reviewed: Laboratory Tests 08/02/25 08:23 Hemoglobin A1c % 5.2 08/02/25-[address]: Hailey Deleon MD ORDERED: Ua Clean Catch QUERIES: Source: Urine, Clean Catch Test Result Flag Reference Ur Color Yellow Ur Appear Clear PH 7.5 5.0-9.0 Ur Glu Negative Negative mg/dL Urine Blood Negative Negative Spec [place] Ur 1.020 1.005-1.025 Urine Protein Negative Neg-Trace mg/dL Urine Ketones Negative Negative mg/dL Ur Nitrite Negative Negative Ur Papo Esterase Negative Negative US ABD 07/29/2025 INDINGS: PANCREAS: No peripancreatic fluid collections. No main pancreatic ductal dilatation. ABDOMINAL AORTA: The proximal, mid, and distal segments are normal in caliber. INFERIOR VENA CAVA: Visualized portions are normal. LIVER: 15 cm. Normal echotexture. No nodular surface. No solid or cystic lesion. No intrahepatic biliary ductal dilatation. GALLBLADDER: Fluid-filled nondistended. No pericholecystic fluid collection or gallbladder wall thickening. COMMON BILE DUCT: 3 mm.. RIGHT KIDNEY: 11 cm. Normal echotexture. Normal renal cortical thickness. No hydronephrosis. No solid or cystic lesion. LEFT KIDNEY: 10 cm. Normal echotexture. Normal renal cortical thickness. No hydronephrosis. No solid or cystic lesion. Questionable punctate hyperechoic structures at the corticomedullary junction.. SPLEEN: 10 cm. No solid or cystic lesion. FREE FLUID: None. US/US abdomen complete IMPRESSION: No cholelithiasis or choledocholithiasis. Liver and spleen are normal. No hydronephrosis. Questionable nonobstructing nephrolithiasis versus artifact, left kidney. No ascites Assessment & Plan Assessment & Plan (1) Chronic GERD: Code(s): K21.9 - Gastro-esophageal reflux disease without esophagitis Category: Medical Plan hE IS DOING BETTER ON THE FAMOTIDINE THAN THE PANTOPRAZOLE. Less GERD, less bloating megan in am. He is quite pleased with this, and we review all the test we have to date which do not show any concerning pathology including no gallstones etc.. He does have the barium swallow coming up and I will see him after the procedure. His EGD is yet to be scheduled. BARIUM SWALLOW EGD BIOPSY Coding Level of Care Code Est Pt Level 3 (57955) Diagnoses Chronic GERD K21.9
== END 2025-08-02 12:08 | disposition home or self-care (01) ==
LOC: HO.HGI 10:05
PROVIDERS: PCP Internal Medicine; Visit Provider Nurse Practitioner
DX: K21.9 Gastro-esophageal reflux disease without esophagitis (principal)
CPT/HCPCS: 99213

== ENCOUNTER 2025-10-05 09:55 | Outpatient (REF) | payer OTHER, SELFPAY ==
--- NOTE | ~2025-10-05 | FL_ITS ---
EXAMINATION: XR BARIUM SWALLOW CLINICAL INFORMATION: Gastroesophageal reflux disease without esophagitis COMPARISON: None available. TECHNIQUE: Patient was administered thin and thick barium and effervescent granules. A barium tablet was also administered. FINDINGS: The swallowing mechanism is normal. No aspiration or penetration. Esophageal motility is normal. No mass, stricture, hernia or reflux is seen. Barium tablet passed freely into the stomach. The visualized stomach and proximal duodenum are normal appearing. FLUOROSCOPY TIME: 1 minute 1 second DOSE AREA PRODUCT: 356 uGy-m2 (microgray-meter squared) FL/FL barium swallow with air IMPRESSION: Unremarkable examination. Electronically signed by: Alka Rojas MD 10/05/2025 04:17 PM [facility]
--- OUTSIDE RECORDS SUMMARY | 2025-10-05 10:45 | XMS_ITS | Clinical Summary ---
Author Organization [facility] Address [address] [place] [address] Care Team Providers Care Jawbone Breaker Name Role Phone Unavailable Primary Care Provider [...] Depression Screening 10/06/2024 COVID-19 Vaccine (1 - 2024-2 6 season) 2025 Influenza Vaccine (#1) 2025 RSV [...]
== END 2025-10-05 09:56 | disposition home or self-care (01) ==
LOC: HO.XRAY 09:55
PROVIDERS: PCP Internal Medicine; Visit Provider Nurse Practitioner
DX: K21.9 Gastro-esophageal reflux disease without esophagitis (principal)
CPT/HCPCS: 74221

== ENCOUNTER → 2025-10-05 09:57 | Outpatient (BNV) | payer OTHER, SELFPAY | PROVIDERS: PCP Internal Medicine; Visit Provider Radiology Diagnostic Radiology | DX: K21.9 Gastro-esophageal reflux disease without esophagitis (principal) | CPT/HCPCS: 74221 ==